=== PATIENT | female | born 1990 | race Caucasian/White ===

== ENCOUNTER → 2017-08-29 | Outpatient (CLI) | payer BC ==
--- NOTE | 2017-08-29 17:16 | RADIOLOGY IMAGING REPORT ---
FACILITY: [facility] [place] PATIENT NAME: Daniella Leiva : 1990 MR: [id number] V: [id number] EXAM DATE: ORDERING PHYSICIAN: JUNE CARO TECHNOLOGIST: Location: [facility] Patient: Daniella Leiva : 1990 Visit/Account:[id number] Date of Sevice: 08/29/2017 2 VIEWS CHEST INDICATION: Cough, congestion and right-sided pain. COMPARISON: None available FINDINGS: Cardiomediastinal silhouette and pulmonary vessels within normal limits. There is no focal infiltrate or lobar consolidation. There is no pneumothorax or pleural effusion. No nodule. Upper abdomen is unremarkable. No acute bony abnormality. IMPRESSION: 1. No acute cardiopulmonary process. Report Dictated By: Crow Lainez at 08/29/2017 5:11 PM Report E-Signed By: Crow Lainez at 08/29/2017 5:12 PM WSN:[id number]
== END ==
LOC: RAD 16:52
PROVIDERS: ATTEND Physician Assistant Medical
DX: R05 Cough (principal)
CPT/HCPCS: 71046